=== PATIENT | female | born 1930 | race Caucasian/White ===

== ENCOUNTER → 2016-11-07 | Outpatient (CLI) | payer MEDICARE, OTHER | END | disposition home or self-care (01) | LOC: GMAB 14:58 | PROVIDERS: ATTEND Family Medicine | DX: E03.9 Hypothyroidism, unspecified (principal); R06.02 Shortness of breath ==

== ENCOUNTER → 2017-08-03 | Outpatient (CLI) | payer MEDICARE, OTHER ==
--- NOTE | 2017-08-03 15:14 | CT ---
EXAM DESCRIPTION:Head CLINICAL HISTORY:PARESTHESIA OF SKIN COMPARISON: None TECHNIQUE: Routine noncontrast brain CT protocol. Imaging was performed utilizing automated exposure control for dose reduction. FINDINGS: No intra-axial mass, hemorrhage, nor midline shift identified in brain. Key-white delineation is maintained in both cerebral and cerebellar hemispheres. Ventricles are midline in position and moderately prominent in caliber, with widening of overlying cortical sulci. Patchy hypoattenuation also scattered in central white matter of both cerebral hemispheres. Small amount of dystrophic calcification along globus pallidus bilaterally. Additional dystrophic calcifications along carotid siphons.. Basal cisterns and fissures are unremarkably patent. Cranium and skull base are intact without focal injury. No scalp abnormality is identified. Orbits are unremarkable in appearance bilaterally. Visualized portions of paranasal sinuses, middle ear cavities and mastoid air cells are well aerated IMPRESSION: No acute intracranial process nor bony injury. Mild to moderate senescent changes. Electronically signed by: Cal Duran MD 08/03/2017 3:13 PM [employer]
== END ==
LOC: LAB.O 14:28
PROVIDERS: ATTEND Nurse Practitioner Family
DX: R20.2 Paresthesia of skin (principal); G45.9 Transient cerebral ischemic attack, unspecified; R82.99 Other abnormal findings in urine; Z79.899 Other long term (current) drug therapy

== ENCOUNTER → 2017-08-09 | Outpatient (CLI) | payer MEDICARE, OTHER ==
--- NOTE | 2017-08-09 17:13 | MRI ---
EXAM DESCRIPTION: Brain w/o Contrast: MRI. CLINICAL HISTORY: TRANSIENT CEREBRAL ISCHEMIC ATTACK, UNSPECIFIED COMPARISON: Carotid ultrasound duplex on this visit. CT scan of the head 08/03/2017. TECHNIQUE: Multiplanar, high-field MRI unit, multiple diffusion sequences, multiple conventional sequences without contrast. FINDINGS: Multiple foci of bright FLAIR and T2-weighted signal in the periventricular white matter and smiley-white matter junctions of the cerebral hemispheres. . An asymmetric lesion in the right frontal precentral gyrus region shows diffusion restriction but no hemorrhage or mass effect. Diffusion restriction not seen elsewhere on the study. Normal signal in the bilateral basal ganglia. No hemorrhage, no cerebral edema, no mass-effect. Normal signal in the brainstem and cerebellar hemispheres. No hemorrhage, no cerebral edema, no mass-effect. Cortical sulci, ventricles, and other CSF spaces, and the subdural spaces are normally configured. No effacement or displacement. No midline shift. No extra-axial hemorrhage. Normal flow signal void in the major vessels of the [place], and the venous sinuses. IACs are symmetric bilaterally. No abnormal signal in the bilateral mastoid air cells. No mass effect in the bilateral cerebellopontine angles. Pituitary gland occupies most of the sella. Base of the cerebellar tonsils is above the foramen magnum. No significant abnormalities in the paranasal sinuses. The bony calvarium is intact. IMPRESSION: 1. 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 No hemorrhage or mass effect. Unlikely to represent a nonvascular event. No hemorrhage mass effect or midline shift elsewhere. 2. Bilateral chronic small vessel ischemic changes in the periventricular white matter and subcortical white matter. Electronically signed by: Obi Centeno MD 08/09/2017 5:12 PM [facility]
--- NOTE | 2017-08-09 17:22 | US ---
EXAM DESCRIPTION: Carotid Duplex: ULTRASOUND. CLINICAL HISTORY: TIA COMPARISON: Noncontrast brain MRI scan with diffusion scan on the same visit. TECHNIQUE: Transcutaneous scanning utilizing 2-dimensional and Doppler modes to evaluate the bilateral carotid systems and vertebral arteries. Percentage of diameter of stenosis or no stenosis recorded will be based upon NASCET criteria. FINDINGS: Peak systolic/end diastolic (CM-Sec) CCA Right 60/17 Left 72/14. ICA Right proximal 67/12, mid 92/22. Left proximal 81/17, Distal 61/19. Vertebral Right 43/11 Left 53/11. ECA (PS Only) Right 74 left 86. ICA/CCA peak systolic ratio: Right 1.5 Left 1.1 ICA/CCA end diastolic ratio: Right 1.3 Left 1.3 Vertebral arteries: antegrade flow. Comments: Atherosclerotic calcification bilateral carotid bifurcations. Bilateral spectral broadening proximal ICAs. Right CCA bulb area stenosis 56%; diameter stenosis 52%. Area stenosis of proximal right ICA 47%; Diameter stenosis 53%. Area stenosis of left common carotid bulb 35%; diameter stenosis 42%. Area stenosis of the proximal left ICA 64%; Diameter stenosis 56%. IMPRESSION: 1. Doppler evaluation of the bilateral carotid systems and vertebral arteries shows no hemodynamically significant stenosis. Two-dimensional measurement of the proximal left ICA stenosis is in the 50-60% diameter stenosis range. 2. Significant amount of plaque seen in the carotid arteries bilaterally. Bilateral vertebral arteries showed antegrade-cephalad flow. Electronically signed by: Obi Centeno MD 08/09/2017 5:21 PM [facility]
== END ==
LOC: MRI 09:20
PROVIDERS: ATTEND Nurse Practitioner Family
DX: G45.9 Transient cerebral ischemic attack, unspecified (principal)

== ENCOUNTER → 2017-08-16 | Outpatient (CLI) | payer MEDICARE ==
--- NOTE | 2017-08-17 08:21 | CT ---
EXAM DESCRIPTION: CTA Neck CLINICAL HISTORY: 87 years, Female, TRANSIENT CEREBRAL ISCHEMIC ATTACK COMPARISON: Carotid Doppler sonogram August 09, 2017 TECHNIQUE: Rapid bolus administration of 100 mL of Isovue 370 IV contrast was performed with thin-section axial scanning of the neck performed in a dynamic fashion. Reconstructed multiplanar and three dimensional MIP and shaded surface display images created on a separate dedicated workstation are reviewed along with the source axial images and stored in the patient's medical record. FINDINGS: Axial images show clear lung apices. No superior mediastinal mass or adenopathy. Bilateral thyroid lesions are seen, largest on the left measuring 1.7 cm in greatest dimension. Further evaluation with sonography might be considered. Left thyroid lobe is enlarged extending into the upper left mediastinum. There is positive contrast enhancement of the aortic arch with mild arteriosclerotic changes. Calcified plaque is seen at the origins of the left subclavian, left common carotid and brachiocephalic arteries. No significant origin stenoses. Tortuous origin of the left vertebral artery is noted. Right vertebral origin is narrowed by plaque. There is positive enhancement of the cervical carotid and vertebral arteries with mild calcified plaque in the common carotid arteries bilaterally. Axial images of the right carotid bifurcation show calcified plaque in the upper right CCA and in the right carotid bulb. The right external carotid artery is widely patent. The right internal carotid artery is not significantly narrowed. Axial images would suggest approximately 30% luminal narrowing of the right carotid bulb with 20% narrowing of the origin of the right ICA. Axial images of the left carotid bifurcation show more extensive dense calcified arteriosclerotic plaque at the origins of the left internal and external carotid arteries. There is 75% luminal diameter narrowing of the upper most left common carotid artery just below the bifurcation. Above this level the appearance is complex but suggests 60% diameter narrowing of the origin of the left external carotid artery and 70-80% diameter narrowing of the lower left carotid bulb. At the level of the upper bulb percent diameter marrow narrowing is approximately 50%. Above the bulb, the mildly tortuous left CCA is widely patent to the level of the skull base. There is extensive predominantly calcified arteriosclerotic plaque involving both carotid arteries in the carotid canals as well as bilateral carotid siphons. Positive enhancement of bilateral anterior and middle cerebral arteries. In the neck, the vertebral arteries are codominant and are statistically enhanced. At the level of the foramen magnum however the left vertebral artery appears somewhat larger than the right. There is positive enhancement of the normal caliber basilar artery which is continuous with the left posterior cerebral artery. Positive enhancement of posterior inferior cerebellar arteries, anterior inferior cerebellar arteries and superior cerebellar arteries. The right posterior cerebral artery is supplied by large right posterior communicating artery. No aneurysm or major vessel occlusion of the vessels of the [place]. Sagittal reformatted MIP images are evaluated. Calcified origin of the right vertebral artery appears to be 50% narrowed. Sagittal images show right carotid bifurcation calcified plaque without significant narrowing of the origins of the internal or external carotid arteries. Moderate degenerative changes of the C-spine are noted. No significant narrowing of the origin of left vertebral artery. Left carotid bifurcation arteriosclerotic calcification is more extensive than the right. Sagittal images would indicate high-grade narrowing of the origins of the internal and external carotid arteries on the left on the order of 90-95%. Prominent vascularization in the region of the posterior pterygoid muscles bilaterally appear symmetrical. The coronal reformatted MIP images also suggest high-grade narrowing of the upper left CCA, origin of the left ICA at the lower bulb level as well as origin of the left ECA. At the level of densest calcification, a contrast opacified lumen is not identifiable suggesting stenosis greater than 90%. Extensive calcified plaque in the carotid siphons is noted bilaterally. The degree of narrowing is difficult to determine with complex pathology in these locations. Technique was optimized for visualization of the cervical vessels rather than intracranial vessels. Shaded surface display images confirm bilateral calcified plaque at the carotid bifurcations left worse than right. MIP images confirm the findings. IMPRESSION: Calcified arteriosclerotic plaque at the left carotid bifurcation with high-grade stenosis of upper left CCA and origins of internal and external carotid arteries. Calcified plaque at the right carotid bifurcation without hemodynamically significant stenoses. 50% stenosis of the origin of the right vertebral artery. Extensive arteriosclerotic changes of the intracranial internal carotid arteries. Bilateral thyroid lesions. Consider further evaluation with sonography. This exam was performed according to our departmental dose-optimization program, which includes automated exposure control, adjustment of the mA and/or kV according to patient size and/or use of iterative reconstruction technique. Total DLP equals 828.20 mGycm. Electronically signed by: Capo Ventura MD 08/17/2017 8:21 AM [employer]
== END ==
LOC: CT 09:01
PROVIDERS: ATTEND Family Medicine
DX: G45.9 Transient cerebral ischemic attack, unspecified (principal)

== ENCOUNTER → 2017-08-21 | Outpatient (CLI) | payer MEDICARE, OTHER ==
--- NOTE | 2017-08-22 10:31 | US ---
THYROID ULTRASOUND CLINICAL INFORMATION: Thyroid nodule. TECHNIQUE: Standard transcutaneous scanning: Two-dimensional and Doppler modes. COMPARISON: Ultrasound thyroid 05/19/2009. FINDINGS: Thyroid size: 4.0 x 2.0 x 1.3 cm right. 4.1 x 2.2 x 1.9 cm left. 2.4 mm isthmus. Texture: Heterogeneous. Estimated total number of nodules >/=1 cm: 0 Number of spongiform nodules >/=2 cm not described below (TR1): 0 Number of mixed cystic and solid nodules >/=1.5 cm not described below (TR2): 0 Nodule #: 1 Maximum size: 0.74 cm; All dimensions 0.66 x 0.62 cm Location: right; mid Composition: cystic/almost completely cystic (0) Echogenicity: anechoic (0) Shape: not [id number] (0) Margins: smooth (0) Echogenic foci: large comet-tail artifacts (0) ACR TI-RADS total points: 0. ACR TI-RADS risk category: TR1 (0 Points) Significant change in size (>/= 20% in two dimensions and minimal increase of 2 mm): No. Change in features: No Change in ACR TI-RADS risk category: No ACR TI-RADS recommendation: No further follow-up. Nodule #: 2 Maximum size: 0.7 cm; All dimensions 0.68 x 0.41 cm Location: right; lower Composition: solid/almost completely solid (2) Echogenicity: hypoechoic (2) Shape: not depcnn-hsfw-hoep (0) Margins: smooth (0) Echogenic foci: none (0) ACR TI-RADS total points: 4. ACR TI-RADS risk category: TR4 (4-6 points) Significant change in size (>/= 20% in two dimensions and minimal increase of 2 mm): Yes. Change in features: No Change in ACR TI-RADS risk category: No ACR TI-RADS recommendation: Follow-up ultrasound in 1 year Nodule #: 3 Maximum size: 0.61 cm; All dimensions 0.5 x 0.42 cm Location: right; lower Composition: mixed cystic and solid (1) Echogenicity: isoechoic (1) Shape: not mhdvwk-jvzh-[id number] (0) Margins: smooth (0) Echogenic foci: none (0) ACR TI-RADS total points: 2. ACR TI-RADS risk category: TR2 (2 points) Significant change in size (>/= 20% in two dimensions and minimal increase of 2 mm): Yes. Change in features: No Change in ACR TI-RADS risk category: Yes ACR TI-RADS recommendation: Follow-up ultrasound in 1 year. Nodule #: 4 Maximum size: 3.0 cm; All dimensions 1.9 x 1.8 cm Location: left; mid Composition: solid/almost completely solid (2) Echogenicity: hyperechoic (1) Shape: not skfqlb-eoju-dhrg (0) Margins: smooth (0) Echogenic foci: peripheral calcifications (2) ACR TI-RADS total points: 5. ACR TI-RADS risk category: TR4 (4-6 points) Significant change in size (>/= 20% in two dimensions and minimal increase of 2 mm): Yes. Change in features: Yes. Change in ACR TI-RADS risk category: No ACR TI-RADS recommendation: Ultrasound-guided fine needle aspiration. Please see below.* No distinct solid mass, parenchymal edema, cyst, or other abnormalities in the adjacent soft tissues. IMPRESSION: 1. Solid hyperechoic nodule in the left lobe measuring over 3 cm longest diameter with peripheral calcifications. Ultrasound-guided fine-needle aspiration sampling is recommended according to ACR TI RADS recommendations. Please see below.* 2. Cyst, in the upper right lobe. This does not require imaging follow-up at this time. 3. Cystic and solid nodule and almost solid nodule, less than 1 cm diameter, have enlarged approximately 20% since the prior study. 1 year follow-up ultrasound is recommended. 3. No distinct solid mass, parenchymal edema, cyst, or other abnormalities in the adjacent soft tissues. *ACR TI-RADS recommendations: TR5 (>/=7 points) - FNA if >/=1 cm, follow-up if 0.5 - 0.9 cm every year for 5 years TR4 (4-6 points) - FNA if >/=1.5 cm, follow-up if 1 - 1.4 cm in 1, 2, 3 and 5 years TR3 (3 points) - FNA if >/=2.5 cm, follow -up if 1.5 - 2.4 cm in 1, 3 and 5 years TR2 (2 points) and TR1 (0 points) - No FNA or follow-up * ACR TI-RADS recommends that no more than two nodules with the highest ACR TI-RADS total point should be biopsied and no more than four nodules should be followed. Electronically signed by: Obi Centeno MD 08/22/2017 10:20 AM CDT
== END ==
LOC: US 14:48
PROVIDERS: ATTEND Internal Medicine Interventional Cardiology
DX: E04.2 Nontoxic multinodular goiter (principal)

== ENCOUNTER → 2017-12-05 | Outpatient (CLI) | payer MEDICARE, OTHER | LOC: GMAB 10:50 | PROVIDERS: ATTEND Family Medicine | DX: E03.9 Hypothyroidism, unspecified (principal) ==

== ENCOUNTER 2018-05-08 16:07 | Emergency (ER) | payer MEDICARE, OTHER ==
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
[2018-05-08] MEDS ORDERED: NEOMYCIN-BACITRACIN-POLYMYXIN 0.9 GM UD TOP ONE (16:58)
[2018-05-08 18:10] VITALS: BP 138/79; TEMP 98; O2SAT 98
== END 2018-05-08 17:00 | disposition home or self-care (01) ==
LOC: ER 16:07
DX: S50.11XA Contusion of right forearm, initial encounter (principal); I10 Essential (primary) hypertension; V49.49XA Driver injured in collision with other motor vehicles in traffic accident, initial encounter; Y92.410 Unspecified street and highway as the place of occurrence of the external cause; Z79.82 Long term (current) use of aspirin; Z79.899 Other long term (current) drug therapy

== ENCOUNTER → 2018-08-06 | Outpatient (CLI) | payer MEDICARE, OTHER | LOC: GMAE 14:14 | PROVIDERS: ATTEND Family Medicine | DX: R06.02 Shortness of breath (principal); I49.9 Cardiac arrhythmia, unspecified ==

== ENCOUNTER → 2018-08-27 | Outpatient (CLI) | payer MEDICARE, OTHER | LOC: LAB.O 12:17 | PROVIDERS: ATTEND Internal Medicine Interventional Cardiology | DX: I50.9 Heart failure, unspecified (principal) ==

== ENCOUNTER → 2019-01-14 | Outpatient (CLI) | payer MEDICARE, OTHER | LOC: GMAE 14:21 | PROVIDERS: ATTEND Family Medicine | DX: E03.9 Hypothyroidism, unspecified (principal); I10 Essential (primary) hypertension ==